=== PATIENT | female | born 1990 | race Caucasian/White ===

== ENCOUNTER 2019-10-05 13:54 | Emergency (ER) | payer BC, SELFPAY ==
[2019-10-05 14:05] VITALS: BP 95/59; PULSE 66; RESP 20; TEMP 36.8; O2SAT 100
--- NOTE | 2019-10-05 14:29 | ED.DENTAL ---
HPI - Dental/Oral General Chief complaint: Dental/Oral Stated complaint: tooth pain Source: patient Mode of arrival: ambulatory Limitations: no limitations History of Present Illness HPI Narrative: This 29-year-old 15 wk gestation female with opioid use disorder maintained on buprenorphene, complains of left, mandibular tooth pain that started 2 days ago. It is made worse with biting. The pain is sharp, rated 5/10. There is no facial or jaw swelling or inability to fully open her mouth. She is . Her has been progressing uneventfully.. When she takes Augmentin or penicillin she breaks out in hives. Related Data Home Medications Medication Instructions Recorded Confirmed PNV cmb#95-ferrous fumarate-FA 1 tablet PO DAILY 10/05/19 10/05/19 [] buprenorphine HCl 8 mg SUBLINGUAL DAILY 10/05/19 10/05/19 ondansetron HCl [Zofran] 4 mg PO Q6H PRN 10/05/19 10/05/19 Allergies Allergy/AdvReac Type Severity Reaction Status Date / Time Penicillins Allergy Mild Hives Verified 10/05/19 14:12 amoxicillin Allergy Unknown Hives Verified 10/05/19 14:12 Review of Systems Constitutional: Constitutional: Reports no additional constitutional complaints ENT: Reports system reviewed and no additional complaints, except as documented PMFSH Past Medical History Medical History Opioid use disorder Family History Family History Mother Carcinoma of colon Family history of diabetes mellitus in first degree relative Grandparent Diabetes mellitus Social History Social History Smoking status: Never smoker Second hand tobacco smoke exposure: No Smoking end date: 02/27/11 Alcohol intake: never Gender identity (if verbalized by the patient): Female Exam Const: General: no acute distress HENMT: Ears: EAC's normal Other: There is no facial, jaw or neck swelling. Tooth number 19 has a filling. She has pain when 18, 19, and 20 are percussed. She has no maxillary or mandibular tenderness. Neck: Neck: normal visual inspection and no lymphadenopathy Course Course Emergency Course: I explained the reasoning behind not starting clindamycin unless there is gum, face, jaw, neck swelling and tenderness or fever/chills. She was instructed to return should that occur. Otherwise, follow up with dentist for X ray. She has an appt. in about 3 weeks but is on the waiting list to be called if cancellations. Vital Signs Vital signs: Vital Signs Temperature 36.8 C 10/05/19 14:05 Pulse Rate 66 10/05/19 14:05 Respiratory Rate 20 10/05/19 14:05 Blood Pressure 95/59 L 10/05/19 14:05 Pulse Oximetry 100 10/05/19 14:05 Temperature 36.8 C 10/05/19 14:05 Pulse Rate 66 10/05/19 14:05 Respiratory Rate 20 10/05/19 14:05 Blood Pressure 95/59 L 10/05/19 14:05 Pulse Oximetry 100 10/05/19 14:05 MDM - Dental/Oral MDM Narrative Medical decision making narrative: There is no evidence of abscess, although she could have one that has not progressed beyond the root of the tooth. Because of drug allergies, the treatment would be clindamycin. I explained, being , it is better to not expose her and the baby to clindamycin unless the abscess has more clearly declared itself. Discharge Plan Discharge Clinical Impression: Toothache Patient Disposition: Home, Self-Care Condition: Stable Instructions: Dental Abscess (ED), Toothache (ED) Additional Instructions: Return if fevers, chills, facial swelling or inability to open mouth completely Prescriptions: No Action ondansetron HCl [Zofran] 4 mg Tablet 4 mg PO Q6H PRN (Reason: Nausea) RF: 0 buprenorphine HCl 8 mg Tablet, Sublingual 8 mg SUBLINGUAL DAILY RF: 0 PNV cmb#95-ferrous fumarate-FA [] 28 mg iron- 800 mcg Tablet 1 tablet PO
== END 2019-10-05 14:44 | disposition home or self-care (01) ==
PROVIDERS: Emergency Provider Family Medicine; PCP Physician Assistant
DX: K08.89 Other specified disorders of teeth and supporting structures (principal)
CPT/HCPCS: 99281; 99282